=== PATIENT | male | born 1960 | race African-American/Black ===

== ENCOUNTER 2023-02-13 20:21 | Emergency (ER) | payer OTHER ==
[2023-02-13] MEDS ORDERED: Acetaminophen/Codeine 30-300mg Tablet ONE (22:59)
== END 2023-02-13 23:38 | disposition home or self-care (01) ==
LOC: EEVIPCON 20:21 → CSHERS 20:21
DX: S02.31XA Fracture of orbital floor, right side, initial encounter for closed fracture (principal); M54.50 Low back pain, unspecified; G89.29 Other chronic pain; I10 Essential (primary) hypertension; W18.30XA Fall on same level, unspecified, initial encounter
CPT/HCPCS: 70450; 70486; 72125; 72131